=== PATIENT | male | born 1970 | race Caucasian/White ===

== ENCOUNTER 2016-07-01 07:05 | Emergency (ER) | payer MEDICAID ==
[~2016-07-01] VITALS: Ht 190.5 cm; Wt 92.5 kg
[~2016-07-01 07:05] MED LIST: ALBUTEROL2 PUFFS/17 IN; ALEVE220 MG PO; AMOXIL500 MG PO; AZITHROMYCIN250 MG PO; BENZONATATE100 MG PO; FLEXERIL10 M1 PO; FLEXERIL10 MG PO; HYDROCODONE1 TABLET PO; LORTAB 5/500 501 TAB PO; LORTAB 500 MG-71 TAB PO; MECLIZINE25 MG PO; MEDROL 4MG. DOSE4 MG PO; NAPROSYN 500MG500 MG PO; NOMEDS XX; PEN-VK500 MG PO; PHENERGAN 25MG.25 M1 PO; PREDNISONE 20MG20 MG PO; ROBAXIN-750750 MG PO; ULTRACET 325 MG1 TAB PO; VALIUM 10MG TAB10 MG PO
[2016-07-01] MEDS ORDERED: NOMEDS XX (07:16)
--- OUTSIDE RECORDS SUMMARY | 2016-07-01 07:49 | External Medical Summary Rpt ---
Author Author , Organization [employer] Address Unknown Phone Unavailable Care Team Providers Care Associate Director Qa Name Role Phone AOUAD SARY, AOCUBAD SARY Unavailable Unavailable PAK LYONS, PAK Unavailable Unavailable LYONS PAK LYONS, PAK Unavailable Unavailable LYONS ARNOLD EJ, ARNOLD Unavailable Unavailable EJ ARNOLD EJ, ARNOLD Unavailable Unavailable EJ [facility] Unavailable [facility]available [facility], [facility] LANRE, LANRE Unavailable Unavailable LANRE BETZY, Unavailable Unavailable LANRE BETZY EDILIA VON, EDILIA VON Unavailable Unavailable MUKESH EVI, MUKESH Unavailable Unavailable EVI [facility] Unavailable Unavailable [facility], [facility] SCHAFFER VON, SCHAFFER Unavailable Unavailable [facility]ON SCH[facility] VON, SCHAFFER Unavailable Unavailable [facility] Unavailable Unavailable [facility], [facility] Un[facility], [facility] LINDA FAN MD, Unavailable Unavailable LINDA FAN MD [facility], Unavailable Unavailable PLL[facility], [facility] PURDOM MAT, PURDOM Unavailable Unavailable MAT [facility] Unavailable Unavailable EQUIPME, [facility] Unavailable Unavailable [facility]QU[facility], [facility] MANUEL LUKE, MANUEL Unavailable Unavailable MARLY GIBBS MOL, GIBBS MOL Unavailable Unavailable [facility], Unavailable Unavailable [facility] Unavailable [facility]available [facility] ABBY JAMESON Unavailable Unavailable ABBY JAMESON Unavailable Unavailable BROOKLYNN MUÑOZ, Unavailable Unavailable BROOKLYNN MUÑOZ Purpose Continuity of Care Document - 09-17-2012 through 2016 Problems Code Diagnosis DOS Provider Status J381 POLYP OF 12-21-2015 [facility] K219 GASTRO-ESOP 12-21-2015 [facility] DISEASE WITHOUT ESOPHAGITIS R490 DYSPHONIA 12-21-2015 [facility] [id number] PAIN IN 03-14-2015 [facility] [id number] PAIN IN 03-14-2015 [facility] [id number] UNSPECIFIED 03-14-2015 [facility], LEFT HIP PLLC INITIAL ENCOUNTER Z720 TOBACCO USE 03-14-2015 [facility] 4660 ACUTE 04-12-2014 [facility] BRONCHITIS 63743 PAIN IN 04-01-2014 [facility] JOINT, LOWER LEG 8362 OTHER TEAR 04-01-2014 [facility] OR [facility] EQUIPME CURRENT 4784 POLYP OF 01-21-2014 [facility] 4785 OTHER 01-21-2014 [place] [facility] CORDS 7242 LUMBAGO 01-10-2014 [facility] 86807 OTHER VOICE 12-21-2013 [facility] DISORDERS V700 ROUTINE 11-19-2013 [facility] GENERAL MEDICAL EXAM@HEALTH CARE FACL 5259 UNSPECIFIED 09-29-2013 ABBY MUÑOZ DISORDER TEETH&SUPPO RTING STRUCTURES 99283 JAW PAIN 09-29-2013 ABBY MUÑOZ 4760 CHRONIC 07-16-2013 PAK LYONS LARYNGITIS 16760 UNSPECIFIED 05-28-2013 [facility] ANESTHESIA PSC 496 CHRONIC 05-28-2013 [facility] OBSTRUCTION ANESTHESIA NEC PSC 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 91387 OTHER 05-04-2013 SCHAFFER VON DYSPHAGIA 305.1 305.1 11-09-2012 [place] TOBACCO USE [facility] 840.8 840.8 11-09-2012 [facility] SHOULDER/AR Hospital [facility] 726.32 726.32 11-03-2012 [facility] EPICONDYLIT [facility] IS Allergies, Adverse Reactions, Alerts Type Allergy to substance Adverse Reaction to Substance Substance Reaction Severity INGREDIENT: NO KNOWN Unknown Unknown - NO KNOWN DRUG ALLERGY Medications Na ND Rx Da Fi Fi Am Da Di Ph RX Ph St me C No te ll ll ou ys ag ar # ys at rm s nt no ma ic us Or Da si cy ia de te s n re d KE 00 09 0 No TO 40 -2 RO 93 3- Lo LA 79 20 ng C 50 13 er 30 1 Ac MG ti /M ve L AL TR 65 09 0 No AM 16 -2 AD 20 3- Lo OL 62 20 ng 71 13 er HC 0 L Ac 50 ti ve MG TA BL ET DE 00 09 0 No PO 00 -1 -M 93 7- Lo ED 07 20 ng RO 30 13 er L 1 40 Ac ti MG ve /M L AL KE 00 08 0 No TO 40 -0 RO 93 1- Lo LA 79 20 ng C 50 13 er 30 1 Ac MG ti /M ve L AL Vital Signs 11-09-2012 12:06 Name Value Interpretat Reference Comment ion Range BP 89 mm[Hg] Diastolic BP Systolic 144 mm[Hg] Heart 77 /min Rate/Pulse O2% 96 % Respiratory 20 /min Rate 11-09-2012 12:04 Name Value Interpretat Reference Comment ion Range BP 89 mm[Hg] Diastolic BP Systolic 144 mm[Hg] Heart 77 /min Rate/Pulse O2% 96 % Respiratory 20 /min Rate 11-03-2012 18:14 Name Value Interpretat Reference Comment ion Range Body 98.6 [degF] Temperature BP 90 mm[Hg] Diastolic BP Systolic 128 mm[Hg] Heart 70 /min Rate/Pulse O2% 94 % Respiratory 18 /min Rate 11-03-2012 18:05 Name Value Interpretat Reference Comment ion Range BP 109 mm[Hg] Diastolic BP Systolic 137 mm[Hg] Heart 64 /min Rate/Pulse O2% 95 % Respiratory 16 /min Rate 09-17-2012 08:38 Name Value Interpretat Reference Comment ion Range Body 97.7 [degF] Temperature BP 89 mm[Hg] Diastolic BP Systolic 136 mm[Hg] Heart 67 /min Rate/Pulse O2% 97 % Respiratory 20 /min Rate Procedures Procedure DOS Code Location Performer Comment RADIOLOGI 82274 [facility] 6 MEDICAL EXAMINATI IMAGING ON KNEE 3 ASS VIEWS SERVICES 83030 [facility] PROVIDED 6 PHYSICIAN EVI BTW 10 S, PLLC PM&8 AM AT 24-HR FACI RADEX HIP 26020 [facility] 6 MEDICAL UNILATERA IMAGING L WITH ASS PELVIS 2-3 VIEWS RADIOLOGI 00800 [facility] 6 MEDICAL EXAMINATI IMAGING ON FEMUR ASS MINIMUM 2 VIEWS KNEE L1830 [facility] 5 [facility] CANVAS EQUIPME EQUIPME LONGTUD PREFAB INJECTION J1100 [facility] 4 Y Y DEXAMETHO [facility] SONE SODIUM PHOSPHATE 1 MG INJECTION J2710 [facility] 4 Y Y NEOSTIGMI [facility] NE METHYLSUL FATE UP TO 0.5 MG INJECTION J3010 [facility] 4 Y Y CITRATE [facility] 0.1 MG INFUSION J7030 [facility] NORMAL 4 Y Y SALINE [facility] SOLUTION 1000 CC INJECTION J0131 [facility] 4 Y Y ACETAMINO [facility] PHEN 10 MG INJECTION J2250 [facility] 4 Y Y MIDAZOLAM [facility] HCL PER 1 MG ANES 09782 [place] WAY[facility] ESOP[facility] 4 MEDICAL R TONI THYRD SERV LARYNX FOUNDATIO TRACH & N LYMPH NECK 1YR LARGSC 94394 [facility] EXC 4 Y Y FABY&/STRP [facility] G CORDS/EPI [place] MCRSCP/[place] L[place] [address] [facility] SURG 4 Y Y PATHOLOGY [facility] GROSS&EVI ROSCOPIC EXAM RADEX 92098 [facility] 4 MEDICAL BETZY LUMBOSACR IMAGING AL ASS MINIMUM 4 VIEWS LARYNGOSC 08450 [place] PAK OPY 4 MEDICAL [facility] FLEXIBLE SERV DIAGNOSTI FOUNDATIO C N NASOPHARY 47065 [place] PAK NGOSCOPY 4 [facility] W/ENDOSCO SERV PE SPX FOUNDATIO N LARGSC 34302 PAK PAK EXC 4 [facility] FABY&/STRP G CORDS/EPI GL MCRSCP/TL SCP ANES 61028 EDILIA VON EDILIA VON ESOPH 4 THYRD LARYNX TRACH & [place]MP[place]EC[place] 1[place] [address] PURDOM PURDOM SURG 4 MAT MAT PATHOLOGY GROSS&EVI ROSCOPIC EXAM LARYNGOSC 42850 PAK PAK OPY 4 [facility] FLEXIBLE DIAGNOSTI C ANES 28167 KARSONWEJordon JACKSON ESOPH 4 LTH MARLY THYRD ANESTHESI LARYNX A PSC TRACH & LYMPH NECK 1YR LARYNGOSC 11336 AOUABoni OKEEFE AOAZAM OKEEFE OPY 4 W/BIOPSY MICROSCOP E/[place] [address] GIBBS MOL GIBBS MOL SURG 4 PATHOLOGY GROSS&EVI ROSCOPIC EXAM Encounters Encounter Start End Date Code Location Performer Type Date OFFICE 55472 [facility] 6 6 Y T VISIT 5 [facility] 6 6 Y [facility] - 6 6 [facility] OUTPATIEN INC T EMERGENCY 32816 [facility] 6 [facility] T VISIT LOW/MODER SEVERITY EMERGENCY 29974 [facility] DEPT 6 6 PHYSICIAN EVI VISIT S, PLLC HIGH SEVERITY& THREAT FUNCJ OFFICE 83000 [facility] SHOREEN 5 5 EJ EJ T VISIT 15 MINUTES OFFICE 60133 [facility] MA[facility] 5 5 EJ EJ T VISIT 15 MINUTES HOSPITAL [facility] - 4 4 Y [facility] T OFFICE 60754 [facility] SEN OUTPATIEN 4 4 EJ EJ T VISIT 15 MINUTES OFFICE 26825 KEN[facility] PAK OUTPATIEN 4 4 MEDICAL L[facility]ONS T VISIT SERV 15 FOUNDATIO MINUTES N OFFICE 35001 [facility] SEN OUTPATIEN 4 4 EJ EJ T VISIT 40 MINUTES OFFICE 73957 [facility]EN[facility] PAK OUTPATIEN 4 4 MEDICAL L[place] T VISIT SERV 10 FOUNDATIO MINUTES N EMERGENCY 02955 ABBY MUÑOZ 4 4 DEPARTMEN T VISIT MODERATE SEVERITY OFFICE 87686 MELLISA PAK CONSULTAT 4 4 LYONS LYONS ION NEW/ESTAB PATIENT 40 MIN OFFICE 50446 [facility] OUTPATI 4 4 Y T VISIT HOSPITAL 10 MINUTES OFFICE 95182 AOUAD SARY AOUABoni OKEEFE OUTPATIEN 4 4 T VISIT 25 MINUTES HOSPITAL [facility] EMER[facility]ENC[facility] 95184 KARIME SCHAFFER 4 4 [facility] VISIT MODERATE SEVERITY Emergency LI FAN (ER) 3 11:42 3 12:05 [facility] Emergency LI FAN (ER) 3 18:00 3 18:18 [facility] Emergency LI Driscoll MD (ER) 3 08:19 3 08:38 [facility]
--- OUTSIDE RECORDS SUMMARY | 2016-07-01 07:49 | External Medical Summary Rpt ---
Author Author , Organization [employer] Address Unknown Phone Unavailable Care Team Providers Care Lip Cutter And Scorer Name Role Phone AOUAD SARY, AOCUBAD SARY [...] VON SCHAFFER VON, SCHAFFER Unavailable Unavailable [facility] Un[facility] Unavailable [facility], [facility] Unavailable [...] MARLY GIBBS MOL, GIBBS MOL Unavailable Unavailable [facility], Unavailable Unavailable [facility] Unavailable Unavailable [facility], [facility] ABBY JAMESON Unavailable Unavailable ABBY JAMESON Unavailable Unavailable BROOKLYNN MUÑOZ, Unavailable Unavailable BROOKLYNN MUÑOZ Purpose Continuity of Care Document - 09-17-2012 through 2016 Problems Code Diagnosis DOS Provider Status J381 POLYP OF 12-21-2015 [facility] K219 GASTRO-ESOP 12-21-2015 [facility] DISEASE WITHOUT ESOPHAGITIS R490 DYSPHONIA 12-21-2015 [facility] Z72110 PAIN IN 03-14-2015 [facility] O89471 PAIN IN 03-14-2015 [facility] [id number] UNSPECIFIED 03-14-2015 [facility], LEFT HIP PLLC INITIAL ENCOUNTER Z720 TOBACCO USE 03-14-2015 [facility]OS[facility] INC 4660 ACUTE 04-12-2014 [facility] BRONCHITIS 39399 PAIN IN 04-01-2014 [facility] JOINT, LOWER LEG 8362 OTHER TEAR 04-01-2014 [facility] OR [facility] EQUIPME CURRENT 4784 POLYP OF 01-21-2014 [facility] [place] 4785 OTHER 01-21-2014 [place] [facility] DIS[facility]ASES [facility] SERV [facility]AL [facility] CORDS 7242 LUMBAGO 01-10-2014 [facility]AG[facility] 34369 OTHER VOICE 12-21-2013 [facility] DISORDERS V700 ROUTINE 11-19-2013 [facility] GENERAL MEDICAL EXAM@HEALTH CARE FACL 5259 UNSPECIFIED 09-29-2013 ABBY MUÑOZ DISORDER TEETH&SUPPO RTING STRUCTURES 05006 JAW PAIN 09-29-2013 ABBY MUÑOZ 4760 CHRONIC 07-16-2013 PAK LYONS LARYNGITIS 58030 UNSPECIFIED 05-28-2013 [facility] DISEASE OF H [facility]ARY[facility]X ANESTHESIA PSC 496 CHRONIC 05-28-[address] [facility] OBSTRUCTION ANESTHESIA NEC PSC 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 IS Allergies, Adverse Reactions, Alerts Type Allergy [...] Procedure DOS Code Location Performer Comment RADIOLOGI 66108 [facility] 6 MEDICAL EXAMINATI IMAGING ON KNEE 3 ASS VIEWS SERVICES 11158 [facility] PROVIDED 6 PHYSICIAN EVI BTW 10 S, PLLC PM&8 AM AT 24-HR FACI RADEX HIP 19424 [facility] 6 MEDICAL UNILATERA IMAGING L WITH ASS PELVIS 2-3 VIEWS RADIOLOGI 88923 [facility] 6 MEDICAL EXAMINATI IMAGING ON FEMUR ASS MINIMUM 2 VIEWS KNEE L1830 [facility] 5 HOME HOME [facility] MEDICAL MEDICAL R CANVAS EQUIPME EQUIPME LONGTUD PREFAB INJECTION J1100 [facility] 4 Y Y DEXAMETHO [facility] SONE SODIUM PHOSPHATE 1 MG INJECTION J2710 [facility] 4 Y Y NEOSTIGMI [facility] NE METHYLSUL FATE UP TO 0.5 MG INJECTION J3010 [facility] FENTANYL 4 Y Y CITRATE [facility] 0.1 MG INFUSION J7030 [facility] NORMAL 4 Y Y SALINE [facility] SOLUTION 1000 CC INJECTION J0131 [facility] 4 Y Y ACETAMINO [facility] PHEN 10 MG INJECTION J2250 [facility] 4 Y Y MIDAZOLAM [facility] HCL PER 1 MG ANES 58287 [place] [facility] ES[facility] 4 MEDICAL R TONI THYRD SERV LARYNX FOUNDATIO TRACH & N LYMPH NECK 1YR LARGSC 80052 [facility] EXC 4 Y Y FABY&/STRP [facility] G CORDS/EPI [place] MCRSCP[place] [address] [facility] SURG 4 Y Y PATHOLOGY [facility] GROSS&EVI ROSCOPIC EXAM RADEX 56330 [facility] 4 MEDICAL BETZY LUMBOSACR IMAGING AL ASS MINIMUM 4 VIEWS LARYNGOSC 06984 [place] PAK OPY 4 MEDICAL [facility] FLEXIBLE SERV DIAGNOSTI FOUNDATIO C N NASOPHARY 54915 [place] PAK NGOSCOPY 4 [facility] W/ENDOSCO SERV PE SPX FOUNDATIO N LARGSC 82188 PAK PAK EXC 4 [facility] FABY&/STRP G CORDS/EPI GL MCRSCP/TL SCP ANES 09442 EDILIA VON EDILIA VON ESOPH 4 THYRD LARYNX TRACH & [place] 1[place] [address] PURDOM PURDOM SURG 4 MAT MAT PATHOLOGY GROSS&EVI ROSCOPIC EXAM LARYNGOSC 56990 PAK PAK OPY 4 [facility] FLEXIBLE DIAGNOSTI C ANES 57922 KARSONWEJordon JACKSON ESOPH 4 LTH MARLY THYRD ANESTHESI LARYNX A PSC TRACH & LYMPH NECK 1YR LARYNGOSC 51883 AOUABoni OKEEFE AOAZAM OKEEFE OPY 4 W/BIOPSY MICROSCOP E/[place] [address] GIBBS MOL GIBBS MOL SURG 4 PATHOLOGY GROSS&EVI ROSCOPIC EXAM Encounters Encounter Start End Date Code Location Performer Type Date OFFICE 84509 [facility] Y T [facility]IS[facility] - 6 6 Y [facility] - 6 6 [facility] OUTPATIEN INC T EMERGENCY 45311 [facility] 6 6 [facility] T VISIT LOW/MODER SEVERITY EMERGENCY 60816 CLE[facility] MAYOR[facility] DEPT 6 6 PHYSICIAN EVI VISIT S, PLLC HIGH SEVERITY& THREAT FUNCJ OFFICE 48262 [facility] SHORE[facility] 5 5 EJ EJ T VISIT 15 MINUTES OFFICE 25590 [facility] MAYES 5 5 EJ EJ T VISIT 15 MINUTES [facility] OFF[facility] 64403 [facility] SEN OUTPATIEN 4 4 EJ EJ T VISIT 15 MINUTES OFFICE 64614 [facility] PAK OUTPATIEN 4 4 MEDICAL LYONS T VISIT SERV 15 FOUNDATIO MINUTES N OFFICE 15355 [facility] S[facility] OUTPATIEN 4 4 EJ EJ T VISIT 40 MINUTES OFFICE 16701 [facility] PAK OUTPATIEN 4 4 MEDICAL [place] T VISIT SERV 10 FOUNDATIO MINUTES N EMERGENCY 06219 ABBY MUÑOZ 4 4 DEPARTMEN T VISIT MODERATE SEVERITY OFFICE 37056 MELLISA PAK CONSULTAT 4 4 LYONS LYONS ION NEW/ESTAB PATIENT 40 MIN OFFICE 05822 [facility] OUTPATI 4 4 Y T VISIT HOSPITAL 10 MINUTES OFFICE 84733 AOUAD SARY AOUABoni OK[facility] OUTPATIEN 4 4 T VISIT 25 MINUTES [facility]OSP[facility] 75159 KARIME SCHAFFER 4 4 [facility] VISIT MODERATE SEVERITY Emergency LI FAN (ER) 3 11:42 3 12:05 [facility] Emergency LI FAN (ER) 3 18:00 3 18:18 [facility] Emergency LI Driscoll MD (ER) 3 08:19 3 08:38 [facility]
--- OUTSIDE RECORDS SUMMARY | 2016-07-01 07:50 | External Medical Summary Rpt ---
Author Author , Organization [employer] Address Unknown Phone Unavailable Care Team Providers Care Acid Tank Cleaner Name Role Phone AOUAD SARY, AOUAD SARY Unavailable Unavailable PAK LYONS, PAK Unavailable Unavailable L[facility]ONS PAK LYONS, PAK Unavailable Unavailable [facility] ARNOLD EJ, ARNOLD Unavailable Unavailable EJ ARNOLD EJ, ARNOLD Unavailable Unavailable [facility] Unavailable Unavailable [facility], [facility] LANRE, LANRE Unavailable Unavailable LANRE BETZY, Unavailable Unavailable LANRE BETZY EDILIA VON, EDILIA VON Unavailable Unavailable MUKESH EVI, MUKESH Unavailable Unavailable EVI [facility] Un[facility] Unavailable INC, [facility] SCHAFFER VON, SCHAFFER Unavailable Unavailable VON [facility]FFER VON, SCHAFFER Unavailable Unavailable [facility] Unavailable Unavailable [facility], [facility] Unavailable Unavailable [facility], [facility], Unavailable Unavailable PLLC, [facility] PURDOM MAT, PURDOM Unavailable Unavailable MAT [facility] Unavailable Unavailable EQUIPME, [facility] Unavailable Unavailable EQUIPME, [facility] MANUEL MARLY, MANUEL Unavailable Unavailable MARLY GIBBS MOL, GIBBS MOL Unavailable Unavailable [facility], Unavailable Unavailable [facility] Unavailable Unavailable [facility] ABBY MUÑOZ, ABBY MUÑOZ Unavailable Unavailable ABBY MUÑOZ, ABBY MUÑOZ Unavailable Unavailable BROOKLYNN MUÑOZ, Unavailable Unavailable BROOKLYNN MUÑOZ Purpose Continuity of Care Document - 05-04-2013 through 2016 Problems Code Diagnosis DOS Provider Status J381 POLYP OF 12-21-2015 [facility] K219 GASTRO-ESOP 12-21-2015 [facility] DISEASE WITHOUT ESOPHAGITIS R490 DYSPHONIA 12-21-2015 [facility] [id number] PAIN IN 03-14-2015 [facility] [facility] [id number] PAIN IN 03-14-2015 [place] [facility] [id number] UNSPECIFIED 03-14-2015 [facility], LEFT HIP PLLC INITIAL ENCOUNTER Z720 TOBACCO USE 03-14-2015 [facility] 4660 ACUTE 04-12-2014 [facility] P[facility] BRONCHITIS 49966 PAIN IN 04-01-2014 [facility] JOINT, LOWER LEG 8362 OTHER TEAR 04-01-2014 [facility] OR [facility] KNEE EQUIPME CURRENT 4784 POLYP OF 01-21-2014 [facility] [place] [facility] 4785 OTHER 01-21-2014 [place] [facility]ICAL DISEASES OF SERV [facility]AL [facility] CORDS 7242 LUMBAGO 01-10-2014 [facility] PAGAN 93965 OTHER VOICE 12-21-2013 [place] [facility] DISORDERS V700 ROUTINE 11-19-2013 [facility] PAGAN GENERAL MEDICAL EXAM@HEALTH CARE FACL 5259 UNSPECIFIED 09-29-2013 ABBY MUÑOZ DISORDER TEETH&SUPPO RTING STRUCTURES 21695 JAW PAIN 09-29-2013 ABBY MUÑOZ 4760 CHRONIC 07-16-2013 PAK LYONS LARYNGITIS 92015 UNSPECIFIED 05-28-2013 [facility] DISEASE OF H LARYNX ANESTHESIA PSC 496 CHRONIC 05-28-2013 [facility] H OBSTRUCTION ANESTHESIA NEC PSC 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 32258 OTHER 05-04-2013 SCHAFFER VON DYSPHAGIA Procedures Procedure DOS Code Location Performer Comment RADIOLOGI 45660 [facility] 6 MEDICAL EXAMINATI IMAGING ON KNEE 3 ASS VIEWS SERVICES 81413 CLEMENTINA MAYORGA PROVIDED 6 PHYSICIAN EVI BTW 10 S, PLLC PM&8 AM AT 24-HR FACI RADIOLOGI 29957 [facility] 6 MEDICAL EXAMINATI IMAGING ON FEMUR ASS MINIMUM 2 VIEWS RADEX HIP 34112 [facility] 6 MEDICAL UNILATERA IMAGING L WITH ASS PELVIS 2-3 VIEWS KNEE L1830 [facility] 5 HOME HOME IMMOBLIZE MEDICAL MEDICAL R CANVAS EQUIPME EQUIPME LONGTUDNL PREFAB INJECTION J1100 [facility] 4 Y Y DEXAMETHO [facility] SONE SODIUM PHOSPHATE 1 MG INJECTION J2710 [facility] 4 Y Y NEOSTIGMI [facility] NE METHYLSUL FATE UP TO 0.5 MG INJECTION J3010 [facility] FENTANYL 4 Y Y [facility] 0.1 MG INFUSION J7030 [facility] NORMAL 4 Y Y SALINE [facility] SOLUTION 1000 CC ANES 96917 [place] WAY[facility] ESOPH 4 MEDICAL R TONI THYRD SERV LARYNX FOUNDATIO TRACH & N LYMPH NECK 1YR LARGSC 12339 [facility] EXC 4 Y Y FABY&/STRP [facility] G CORDS/EPI GL MCRSCP/[place] [address] [facility] SURG 4 Y Y PATHOLOGY [facility] GROSS&EVI ROSCOPIC EXAM INJECTION J0131 [facility] 4 Y Y ACETAMINO [facility] PHEN 10 MG INJECTION J2250 [facility] 4 Y Y MIDAZOLAM [facility] HCL PER 1 MG RADEX 66082 [facility] [facility] 4 MEDICAL BETZY LUMBOSACR IMAGING AL ASS MINIMUM 4 VIEWS LARYNGOSC 03698 [place] PAK OPY 4 MEDICAL [facility] FLEXIBLE SERV DIAGNOSTI FOUNDATIO C N NASOPHARY 01269 KENNY PAK NGOSCOPY 4 MEDICAL LYONS W/ENDOSCO SERV PE SPX FOUNDATIO N ANES 38631 EDILIA VON EDILIA VON ESOPH 4 THYRD LARYNX TRACH & [place]YMP[place]EC[place] 1[place] [address] PURDOM PURDOM SURG 4 MAT MAT PATHOLOGY GROSS&EVI ROSCOPIC EXAM LARGSC 45793 PAK PAK EXC 4 [facility] FABY&/STRP G CORDS/EPI GL MCRSCP/TL SCP LARYNGOSC 35501 PAK PAK OPY 4 [facility] [place] [address] GIBBS MOL GIBBS MOL SURG 4 PATHOLOGY GROSS&EVI ROSCOPIC EXAM ANES 94761 [facility] MAN[facility]EL ESOPH 4 LTH MARLY THYRD ANESTHESI LARYNX A PSC TRACH & LYMPH NECK 1YR LARYNGOSC 16075 ELVI OKEEFE OPY 4 W/BIOPSY MICROSCOP E/TELESCO PE Encounters Encounter Start End Date Code Location Performer Type Date [facility] [id number] [facility] 6 6 Y T VISIT 5 HOSPITAL MINUTES EMERGENCY 44549 CLEMENTINA [place] DEPT 6 6 PHYSICIAN EVI VISIT S, PLLC HIGH SEVERITY& THREAT FUNCJ EMERGENCY 35565 [facility] 6 6 [facility] DEPARTMEN INC T VISIT LOW/MODER SEVERITY [facility]OSP[facility] - 6 6 [facility]PATI[facility] T OFFICE [id number] [facility] OUTPATIEN 5 5 EJ EJ T VISIT 15 MINUTES OFFICE 43859 KITJENS [facility] OUTPATIEN 5 5 EJ EJ T VISIT 15 MINUTES [facility]OSP[facility] 53131 [facility] OUTPATIEN 4 4 EJ EJ T VISIT 15 MINUTES OFFICE 43846 KENNY PAK OUTPATIEN 4 4 [facility] T VISIT SERV 15 FOUNDATIO MINUTES N OFFICE 53945 [facility] S[facility] OUTPATIEN 4 4 EJ EJ T VISIT 40 MINUTES OFFICE 86629 KENNY PAK OUTPATIEN 4 4 [facility] T VISIT SERV 10 FOUNDATIO MINUTES N EMERGENCY 93703 ABBY MUÑOZ 4 4 DEPARTMEN T VISIT MODERATE SEVERITY OFFICE 47786 MELLISA PAK CONSULTAT 4 4 [facility] PATIENT 40 MIN OFFICE 14291 UNIVERSIT OUTPATIEN 4 4 Y T VISIT HOSPITAL 10 MINUTES OFFICE 05539 AOUAD SARY AOUAD SARY OUTPATIEN 4 4 T VISIT 25 MINUTES HOSPITAL UNIVERSIT - 4 4 Y OUTPATIEN HOSPITAL T EMERGENCY 42402 KARIME SCHAFFER 4 4 VON VON DEPARTMEN T VISIT MODERATE SEVERITY
--- OUTSIDE RECORDS SUMMARY | 2016-07-01 07:50 | External Medical Summary Rpt ---
Author Author , Organization [employer] Address Unknown Phone Unavailable Care Team Providers Care Pmo Manager Name Role Phone AOUAD SARY, AOUAD SARY Unavailable Unavailable PAK LYONS, PAK Unavailable Unavailable LYONS PAK LYONS, PAK Unavailable Unavailable L[facility]ONS ARNOLD EJ, ARNOLD Unavailable Unavailable EJ ARNOLD EJ, ARNOLD Unavailable Unavailable E[facility] Unavailable Unavailable [facility] LANRE, LANRE Unavailable Unavailable LANRE BETZY, Unavailable Unavailable LANRE BETZY EDILIA VON, EDILIA VON Unavailable Unavailable MUKESH EVI, MUKESH Unavailable Unavailable EVI [facility] Un[facility] Un[facility], [facility] SCHAFFER VON, SCHAFFER Unavailable Unavailable VON SCHAFFER VON, SCHAFFER Unavailable Unavailable [facility], [facility], [facility], Unavailable Unavailable [facility], [facility] PURDOM MAT, PURDOM Unavailable Unavailable [facility] Unavailable Unavailable [facility], [facility] Unavailable Unavailable [facility], [facility] MANUEL MARLY, MANUEL Unavailable Unavailable MARLY GIBBS MOL, GIBBS MOL Unavailable Unavailable [facility], Unavailable Unavailable [facility] Unavailable [facility] ABBY MUÑOZ, ABBY MUÑOZ Unavailable Unavailable ABBY MUÑOZ, ABBY MUÑOZ Unavailable Unavailable BROOKLYNN MUÑOZ, Unavailable Unavailable BROOKLYNN MUÑOZ Purpose Continuity of Care Document - 05-04-2013 through 2016 Problems Code Diagnosis DOS Provider Status J381 POLYP OF 12-21-2015 [facility] K219 GASTRO-ESOP 12-21-2015 [facility] DISEASE WITHOUT ESOPHAGITIS R490 DYSPHONIA 12-21-2015 [facility] [id number] PAIN IN 03-14-2015 [facility] [id number] PAIN IN 03-14-2015 [facility] [id number] UNSPECIFIED 03-14-2015 [facility] INITIAL ENCOUNTER Z720 TOBACCO USE 03-14-2015 [facility] 4660 ACUTE 04-12-2014 [facility] BRONCHITIS 40482 PAIN IN 04-01-2014 [facility] JOINT, LOWER LEG 8362 OTHER TEAR 04-01-2014 [facility] CURRENT 4784 POLYP OF 01-21-2014 [facility] 4785 OTHER 01-21-2014 [facility] COR[facility] 7242 LUMBAGO 01-10-2014 [facility] 16092 OTHER VOICE 12-21-2013 [facility] DISORDERS V700 ROUTINE 11-19-2013 [facility] GENERAL MEDICAL EXAM@HEALTH CARE FACL 5259 UNSPECIFIED 09-29-2013 ABBY MUÑOZ DISORDER TEETH&SUPPO RTING STRUCTURES 35485 JAW PAIN 09-29-2013 ABBY MUÑOZ 4760 CHRONIC 07-16-2013 [facility]K [facility] LARYNGITIS 43925 UNSPECIFIED 05-28-2013 [facility] 496 CHRONIC 05-28-[address] [facility] OBSTRUCTION ANESTHESIA NEC PSC 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 18107 OTHER 05-04-2013 SCH[facility] VON DYSPHAGIA Procedures Procedure DOS Code Location Performer Comment RADIOLOGI 16996 [facility] 6 MEDICAL EXAMINATI IMAGING ON KNEE 3 ASS VIEWS SERVICES 59502 [facility] PROVIDED 6 PHYSICIAN EVI BTW 10 S, PLLC PM&8 AM AT 24-HR FACI RADIOLOGI 98647 [facility] 6 MEDICAL EXAMINATI IMAGING ON FEMUR ASS MINIMUM 2 VIEWS RADEX HIP 97223 [facility] 6 MEDICAL UNILATERA IMAGING L WITH ASS PELVIS 2-3 VIEWS KNEE L1830 [facility] 5 HOME HOME IMMOBLIZE MEDICAL MEDICAL R CANVAS EQUIPME EQUIPME LONGTUDNL PREFAB INJECTION J1100 [facility] 4 Y Y DEXAMETHO [facility] SONE SODIUM PHOSPHATE 1 MG INJECTION J2710 [facility] 4 Y Y NEOSTIGMI [facility] NE METHYLSUL FATE UP TO 0.5 MG INJECTION J3010 [facility] FENTANYL 4 Y Y LOWER [facility] 0.1 MG INFUSION J7030 [facility] NORMAL 4 Y Y SALINE [facility] SOLUTION 1000 CC ANES 70130 [place] [facility] ESOPH 4 MEDICAL R TONI THYRD SERV LARYNX FOUNDATIO TRACH & N LYMPH NECK 1YR LARGSC 94330 [facility] EXC 4 Y Y FABY&/STRP [facility] G CORDS/EPI [place] MCRSCP/[place] [address] [facility] SURG 4 Y Y PATHOLOGY [facility] GROSS&EVI ROSCOPIC EXAM INJECTION J0131 [facility] 4 Y Y ACETAMINO [facility] PHEN 10 MG INJECTION J2250 [facility] 4 Y Y MIDAZOLAM [facility] HCL PER 1 MG RADEX 71299 [facility] 4 MEDICAL BETZY LUMBOSACR IMAGING AL ASS MINIMUM 4 VIEWS LARYNGOSC 48084 [place] PAK OPY 4 MEDICAL [facility] FLEXIBLE SERV DIAGNOSTI FOUNDATIO C N NASOPHARY 54964 KENNY PAK NGOSCOPY 4 MEDICAL LYONS W/ENDOSCO SERV PE SPX FOUNDATIO N ANES 51008 EDILIA VON EDILIA VON ESOPH 4 THYRD [place] TRACH & [place]MP[place]EC[place] 1[place] [address] PURDOM PURDOM SURG 4 MAT MAT PATHOLOGY GROSS&VEI ROSCOPIC EXAM LARGSC 24792 PAK PAK EXC 4 [facility] FABY&/STRP G CORDS/EPI GL MCRSCP/TL SCP LARYNGOSC 21234 PAK PAK OPY 4 [facility] [place] [address] GIBBS MOL GIBBS MOL SURG 4 PATHOLOGY GROSS&EVI ROSCOPIC EXAM ANES 50399 [facility] MANUEL ESOPH 4 LTH MARLY THYRD ANESTHESI LARYNX A PSC TRACH & LYMPH NECK 1YR LARYNGOSC 44722 ELVI OKEEFE OPY 4 W/BIOPSY MICROSCOP E/TELESCO PE Encounters Encounter Start End Date Code Location Performer Type Date [facility] - 6 6 Y [facility] T OFFICE 34558 [facility] 6 6 Y T VISIT 5 HOSPITAL MINUTES EMERGENCY 62613 [facility] DEPT 6 6 PHYSICIAN EVI VISIT S, PLLC HIGH SEVERITY& THREAT FUNCJ EMERGENCY 76829 [facility] 6 6 [facility] DEPARTMEN INC T VISIT LOW/MODER SEVERITY HOSPITAL [facility] - 6 6 [facility] OUTPATIEN INC T OFFICE 23880 [facility] 5 5 EJ EJ T VISIT 15 MINUTES OFFICE 26425 [facility] 5 5 EJ EJ T VISIT 15 MINUTES HOSPITAL UNIVERSIT - 4 4 Y [facility] T OFFICE 40541 [facility] OUTPATIEN 4 4 EJ EJ T VISIT 15 MINUTES OFFICE 25938 KENNY PAK OUTPATIEN 4 4 MEDICAL LYONS T VISIT SERV 15 FOUNDATIO MINUTES N OFFICE 23235 [facility] OUTPATI[facility] 4 4 EJ EJ T VISIT 40 MINUTES OFFICE 14073 KENNY PAK OUTPATIEN 4 4 MEDICAL LYONS T VISIT SERV 10 FOUNDATIO MINUTES N EMERGENCY 69874 ABBY MUÑOZ 4 4 DEPARTMEN T VISIT MODERATE SEVERITY OFFICE 24989 MELLISA PAK CONSULTAT 4 4 [facility] PATIENT 40 MIN OFFICE 83287 UNIVERS[facility] OUTPATIEN 4 4 Y T VISIT HOSPITAL 10 MINUTES OFFICE 07727 AOUAD SARY AOUAD SARY OUTPATIEN 4 4 T VISIT 25 MINUTES HOSPITAL UNIVERSIT - 4 4 Y OUTPATIEN HOSPITAL T EMERGENCY 06228 KARIME SCHAFFER 4 4 VON VON DEPARTMEN T VISIT MODERATE SEVERITY
--- OUTSIDE RECORDS SUMMARY | 2016-07-01 07:50 | External Medical Summary Rpt ---
Author Author BONI Robert, BONI Robert Organization [employer] Address Unknown Phone Unavailable
--- OUTSIDE RECORDS SUMMARY | 2016-07-01 07:50 | External Medical Summary Rpt ---
Demographics Preferred Language Faroese Marital Status Unknown Hoahaoism Affiliation Unknown Race Unknown Ethnic Group Unknown Author Author , Organization [employer] Address Unknown Phone Unavailable Purpose Continuity of Care Document - through 2016 Immunization No patient found.
--- OUTSIDE RECORDS SUMMARY | 2016-07-01 07:50 | External Medical Summary Rpt ---
Demographics Preferred Language Gibraltarian Marital Status Unknown Mormonism Affiliation Unknown Race Unknown Ethnic Group Unknown Author Author , Organization [employer] Address Unknown Phone Unavailable Purpose Continuity of Care Document - through 2016 Immunization No patient found.
[2016-07-01] MEDS ORDERED: PREDNISONE 20MG20 MG PO (07:58)
[2016-07-01] MEDS ORDERED: TESSALON PERLE100 MG PO (07:58)
[2016-07-01] MEDS ORDERED: ZITHROMAX Z PA250 MG PO (07:58)
--- NOTE | 2016-07-01 07:59 | Emergency Room Report ---
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 N Clinical Suspician of Infection? N Mental Status: 1 - Regular (Normal Baseline) Sepsis Risk:Low Sepsis Risk Have you (or family members/close friends) recently traveled outside the [place]? N If Yes, where/when: Have you had exposure to infectious disease within the past month? TB? Other? 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 No Angina: No IN: No Hypertension? No Hyperlipidemia? No CHF? No DVT? No PE? No COPD? No Asthma? No Anemia? No GERD? No Gastric ulcers? No GI Bleed? No Hernia? No Thyroid Problems? No Hypothyroidism? No CVA? No Seizures? No Diabetes? No Insulin Dependent: No Insulin Pump: No Home FSBS? No Renal Insuffiency? No End Stage Renal Disease? No UTI? No Stones? No BPH? No GB Disease: Yes Nephritic Syndrome? No Asplenia? No Hepatitis? No Sickle Cell Disease? No Arthritis? No Migraines? No Cataracts? No Glaucoma? No MRSA? No HIV? No TB? No Anxiety? No Depression? No Cancer? No More? No Immunization Hx Ped.Immunizations UTD Yes DT/Tetanus 5-10 Years Ago Flu NEVER Pneumonia NEVER Surgical Hx Previous Surgery?Y Gallbladd THROAT Family History Family Hx Diabetes No CAD No Hypertension No Hyperlipidemia No Cancer Yes TB No Social History Smoking Hx Smoker: Current Every Day Smoker Tobacco: Yes Type Cigarettes Packs/day < 1 Pack Alcohol Alcohol: Yes Drugs none Review of Systems All Other Systems Reviewed and Negative Constitutional denies fever Eyes denies drainage ENT denies: ear pain, epistaxis, throat pain. Respiratory cough, denies shortness of breath, denies wheezing Cardiovascular denies chest pain, denies syncope Gastrointestinal denies abdominal pain, denies nausea, denies vomiting Genitourinary denies: dysuria, frequency, hesitancy. Musculoskeletal denies back pain, denies joint pain, denies joint swelling, denies neck pain Skin denies rash Psychiatric/Neurological denies headache, denies seizure Physical Exam Vital Signs Vital Signs Date Time Temp Pulse Resp B/P Pulse O2 O2 Flow FiO2 Ox Delivery Rate 07/01 712 98.3 62 18 123/83 98 - WBC >12,000 or <4,000 or 10% bands? 2 or more SIRS Criteria Met? B/P:123/83 MAP:96 Creatinine >2.0? UA output<0.5ml/kg/hr for 2 hrs? Platelet count >100,000? Lactate >2.0mmol/1? INR >1.2 or PTT > than 60 sec? Evidence of Organ Dysfunction? Provider documented clinical suspician of infection? N Sepsis Criteria Count: 0 Sepsis Risk: Low Sepsis Risk General Appearance no apparent distress Eye Exam - bilateral eye PERRL, bilateral eye EOMI Ear, Nose, Throat normal ENT inspection Neck supple Respiratory Status No: respiratory distress. Lung Sounds bilateral: lungs clear. 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 No Results/Orders Laboratory Tests 07/01/16 0720: Influenza Type A Ag NOT DETECTED, Influenza Type B Ag NOT DETECTED Orders Procedure Date/time Status INFLUENZA A&B ANTIGENS 07/01 717 Complete CHEST(2 VIEWS-NOT PORTABLE) 07/01 712 Active XRAY/CT/US XRAY/CT/US XRAY chest XR interpretation by reviewed by me Xray Results abnormal (copd) Departure Departure Time of Disposition 0754 Disposition DC Home or Self Care(routine) Clinical Impression Primary Impression: COPD (chronic obstructive pulmonary disease) with acute bronchitis Condition STABLE Referrals Dionisio LONGORIA,A.C. (Family) Patient Instructions DI for Cough -- Adult Additional Instructions fluids and use meds and consider tob cessation Discharge Counseling Counseled pt/family regarding diagnosis, test results, medications/RX, follow up needs Prescriptions Current Visit Scripts Prednisone (Prednisone 20MG) 20 MG PO BID #10 TAB BENZONATATE (Benzonatate) 100 MG PO TID #15 CAP Azithromycin (Zithromycin (Z-ROOSEVELT) 250MG Tab) 250 MG PO DAILY #6 TAB TAKE TWO (2) TABLETS ON DAY 1, THEN ONE (1) TABLET DAY #2 THRU #5 ED Critical Care Critical Care No at 3973
[2016-07-01 08:09] VITALS: BP 123/83
--- NOTE | 2016-07-01 08:53 | RADIOLOGY REPORT PS360 ---
CHEST(2 VIEWS-NOT PORTABLE) Ordering physician: Age: 45 years Male INDICATION: chest symptomsCOUGH AND CONGESTION FOR A WEEK PROCEDURE: CHEST(2 VIEWS-NOT PORTABLE) FINDINGS: Dated prior chest film 07/01/2016 and 03/30/2009 . No significant new findings. Slight coarsening of central markings appears chronic and. Stable. Lungs well expanded and clear with nothing definitely acute. No pneumothorax. No pleural effusion. Heart normal size. Normal pulmonary vascularity. Hilar and mediastinal structures appear satisfactory. Chest wall unremarkable. T-spine intact. IMPRESSION ----- Stable chest. Nothing definite acute . Minor chronic changes
== END 2016-07-01 08:09 | disposition home or self-care (01) ==
LOC: ER 07:05
DX: J44.1 Chronic obstructive pulmonary disease with (acute) exacerbation (principal); Z72.0 Tobacco use

== ENCOUNTER → 2016-11-19 | Outpatient (CLI) | payer MEDICAID ==
--- NOTE | 2016-11-19 14:09 | RADIOLOGY REPORT PS360 ---
MRI-L-SPINE W/O COMPARISON: Plain films lumbar spine 10/10/2016 HISTORY: Low back pain TECHNIQUE: Standard sagittal and axial sequences were performed along with myelogram sequence. FINDINGS: Curvature and alignment appear normal. The marrow signal is normal in all lumbar vertebrae. The L1-2 and L2-3 and L5-S1 disc all appear normal with normal healthy high disc signal. There is decreased signal of the L3-4 and L4-5 disc suggesting mild or early desiccation. There is a mild diffuse disc bulge L45 combined with hypertrophic facet changes at this level results in mild neural foraminal narrowing bilaterally there are mild hypertrophic facet changes at L3-4 as well. The spinal canal is normal size throughout. The myelogram sequence is unremarkable. IMPRESSION: Mild diffuse disc bulge L5-4-5 combined with hypertrophic facet changes at L3-4 and L4-5.
== END ==
LOC: RAD 12:56
DX: M54.5 Low back pain (principal)